=== PATIENT | female | born 1995 | race African-American/Black ===

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

== ENCOUNTER 2017-02-09 13:57 | Emergency (ER) | payer SELFPAY ==
[~2017-02-09] VITALS: Ht 165.1 cm; Wt 72.6 kg
[2017-02-09 14:10] VITALS: BP 138/74
--- NOTE | 2017-02-09 14:40 | PHYS DOC ---
Past Medical History Past Medical History: No Pertinent History Past Surgical History: No Surgical History Alcohol Use: None Drug Use: None Adult General Chief Complaint Chief Complaint: VAGINAL BLEEDING HPI HPI Patient is a 21 year old F who presents with vaginal bleeding. Patient is with unknown dates but took a printed test a month ago that was positive. Patient states approximately 3 weeks ago she had some vaginal bleeding that lasted for about a day and stopped. Patient states she woke up this morning had some vaginal spotting with no associated pain therefore came the emergency room for further evaluation. Patient denies any chest pain or shortness of breath. Patient denies any fevers. Patient denies any dysuria. Patient denies any abdominal pain or abdominal cramping at this time. Patient has no other complaints. Patient denies any recent intercourse. Review of Systems Review of Systems GEN: Denies fevers, chills, sweats HEENT: Denies blurred vision, sore throat CV: Denies chest pain RESP: Denies shortness of air, cough GI: Denies n/v/d : vag bleeding NEURO: Denies confusion, dizziness MSK: Denies weakness, joint pain/swelling Allergies Allergies Allergies Coded Allergies Type Severity Reaction Last Updated Verified No Known Drug Allergies 06/09/15 No Physical Exam Physical Exam GEN.: No apparent distress. Alert and oriented. HEENT: Head is normocephalic, atraumatic NECK: Supple. LUNGS: CTAB. HEART: RRR, S1, S2 present. Peripheral pulses intact ABDOMEN: Soft, nontender. Positive bowel sounds. EXTREMITIES: Without any cyanosis. NEUROLOGIC: Normal speech, normal tone PSYCHIATRIC: Normal affect, normal mood. SKIN: No ulcerations Current Patient Data Vital Signs Vital Signs Date Time Temp Pulse Resp B/P (MAP) Pulse Ox O2 Delivery O2 Flow Rate FiO2 02/09/17 14:10 97.9 89 16 138/74 (95) 99 Room Air 97.9 Lab Values Laboratory Tests Test 02/09/17 13:22 02/09/17 14:05 02/09/17 14:50 POC Urine HCG, Qualitative Hcg positive (Negative) Urine Color Yellow Urine Clarity Turbid Urine pH 7.0 Urine Specific [place] 1.025 Urine Protein Negative mg/dL (NEG-TRACE) Urine Glucose (UA) Negative mg/dL (NEG) Urine Ketones (Stick) Negative mg/dL (NEG) Urine Blood Moderate (NEG) Urine Nitrite Negative (NEG) Urine Bilirubin Negative (NEG) Urine Urobilinogen Dipstick 0.2 mg/dL (0.2 mg/dL) Urine Leukocyte Esterase Moderate (NEG) Urine RBC 3-5 /HPF (0-2) Urine WBC 5-10 /HPF (0-4) Urine Squamous Epithelial Cells Mod /LPF Urine Amorphous Sediment Present /HPF Urine Bacteria Few /HPF (0-FEW) White Blood Count 8.4 x10^3/uL (4.0-11.0) Red Blood Count 3.80 x10^6/uL (3.50-5.40) Hemoglobin 11.9 g/dL (12.0-15.5) L Hematocrit 35.4 % (36.0-47.0) L Mean Corpuscular Volume 93 fL (79-100) Mean Corpuscular Hemoglobin 31 pg (25-35) Mean Corpuscular Hemoglobin Concent 34 g/dL (31-37) Red Cell Distribution Width 12.8 % (11.5-14.5) Platelet Count 181 x10^3/uL (140-400) Neutrophils (%) (Auto) 70 % (31-73) Lymphocytes (%) (Auto) 22 % (24-48) L Monocytes (%) (Auto) 6 % (0-9) Eosinophils (%) (Auto) 2 % (0-3) Basophils (%) (Auto) 0 % (0-3) Neutrophils # (Auto) 5.9 x10^3uL (1.8-7.7) Lymphocytes # (Auto) 1.8 x10^3/uL (1.0-4.8) Monocytes # (Auto) 0.5 x10^3/uL (0.0-1.1) Eosinophils # (Auto) 0.2 x10^3/uL (0.0-0.7) Basophils # (Auto) 0.0 x10^3/uL (0.0-0.2) Maternal Serum HCG Beta Subunit 04215 mIU/mL (0-5) H Sodium Level 139 mmol/L (136-145) Potassium Level 3.7 mmol/L (3.5-5.1) Chloride Level 101 mmol/L (98-107) Carbon Dioxide Level 27 mmol/L (21-32) Anion Gap 11 (6-14) Blood Urea Nitrogen 7 mg/dL (7-20) Creatinine 0.7 mg/dL (0.6-1.0) Estimated GFR (Cockcroft-Gault) 130.4 BUN/Creatinine Ratio 10 (6-20) Glucose Level 75 mg/dL (70-99) Calcium Level 9.2 mg/dL (8.5-10.1) Total Bilirubin 0.2 mg/dL (0.2-1.0) Aspartate Amino Transferase (AST) 16 U/L (15-37) Alanine Aminotransferase (ALT) 18 U/L (14-59) Alkaline Phosphatase 76 U/L (46-116) Total Protein 7.6 g/dL (6.4-8.2) Albumin 3.4 g/dL (3.4-5.0) Albumin/Globulin Ratio 0.8 (1.0-1.7) L Laboratory Tests 02/09/17 14:50 Laboratory Tests 02/09/17 14:50 EKG EKG [] Radiology/Procedures Radiology/Procedures US: IMPRESSION: Single viable intrauterine fetus of approximately 12 weeks 3 days gestation. Subchorionic hemorrhage as outlined above.[] Course & Med Decision Making Course & Med Decision Making Pertinent Labs and Imaging studies reviewed. (See chart for details) ED course: Patient is seen and examined emergency room CBC, CMP, Rh, UA, ultrasound first trimester 1625: Patient was updated on ultrasound results and the subchorionic bleed was explained to her, recommended pelvic rest until follow-up with INSTRUMENT LENS GRINDER, recommended care. Explained to the patient that we'll be treating her for UTI. MDM: After reviewing the chart, CC/HPI/PMH, physical exam, [lab results], [ radiological results], I do not believe the patient has an obstetric emergency warranting further workup and/or admission at this time. Patient is stable to be discharged home. Patient has subchorionic bleed and recommended pelvic rest until she follows up with BOROUGH COORDINATOR. Will treat the patient for UTI. Additional verbal discharge instructions were provided to the patient and that if symptoms get worse or any new symptoms arise that are worrisome to the patient she is to return to the emergency room immediately [] Dragon Disclaimer Dragon Disclaimer This electronic medical record was generated, in whole or in part, using a voice recognition dictation system. Departure Departure Impression: Primary Impression: UTI (urinary tract infection) Additional Impressions: Subchorionic bleed Disposition: 01 HOME, SELF-CARE Condition: IMPROVED Referrals: NO PCP (PCP) Patient Instructions: Urinary Tract Infection, [id number] Additional Instructions: Please follow up with her INSTRUMENT LENS GRINDER the next one to 2 days, pelvic rest until follow-up, please return if symptoms get worse Scripts Nitrofurantoin Monohyd/M-Cryst (MACROBID 100 MG CAPSULE) 100 Mg Capsule 1 CAP PO BID, #[id number] CAP Prov: ROOPA BOO DO 02/09/17 Problem Qualifiers ROOPA BOO DO Feb 09, 2017 14:40
[2017-02-09 15:00] LABS: BASO % 0 % (0-3); EOS % 2 % (0-3); HEMATOCRIT 35.4 % (36.0-47.0); HEMOGLOBIN 11.9 g/dL (12.0-15.5); LYMPH # 1.8 x10^3/uL (1.0-4.8); LYMPH % 22 % (24-48); MEAN CORPUSCULAR HEMOGLOBIN 31 pg (25-35); MEAN CORPUSCULAR HGB CONC 34 g/dL (31-37); MEAN CORPUSCULAR VOLUME 93 fL (79-100); MONO % 6 % (0-9); NEUT % 70 % (31-73); PLATELET COUNT 181 x10^3/uL (140-400); RED CELL DISTRIBUTION WIDTH 12.8 % (11.5-14.5); WHITE BLOOD COUNT 8.4 x10^3/uL (4.0-11.0)
[2017-02-09 15:16] LABS: CALCIUM 9.2 mg/dL (8.5-10.1); CREATININE 0.7 mg/dL (0.6-1.0); GFR 130.4; POTASSIUM 3.7 mmol/L (3.5-5.1)
--- NOTE | 2017-02-09 15:16 | RAD ---
Indication with spotting. Early obstetrical ultrasound examination was performed. No prior pelvic imaging is available. There is a single, viable, IUP. [place]-rump length of 6 cm is compatible with a gestational age of approximately 12 weeks 3 days. By sonographic analysis the expected date of confinement is 08/21/2017. A heart rate of 160 was documented. There is a hypoechoic mass measuring approximately 6 cm compatible with an area of subchorionic hemorrhage. IMPRESSION: Single viable intrauterine fetus of approximately 12 weeks 3 days gestation. Subchorionic hemorrhage as outlined above.
[2017-02-09 15:19] LABS: ALBUMIN 3.4 g/dL (3.4-5.0); ALBUMIN/GLOBULIN RATIO 0.8 (1.0-1.7); TOTAL BILIRUBIN 0.2 mg/dL (0.2-1.0); TOTAL PROTEIN 7.6 g/dL (6.4-8.2)
[2017-02-09 15:25] LABS: BILIRUBIN,URINE NEGATIVE (NEG); GLUCOSE,URINE NEGATIVE (NEG); NITRITE,URINE NEGATIVE (NEG); PROTEIN,URINE NEGATIVE (NEG-TRACE); UROBILINOGEN,URINE 0.2 mg/dL (0.2 mg/dL)
[2017-02-09 15:45] LABS: BACTERIA,URINE FEW /HPF (0-FEW); SQUAMOUS EPITHELIAL CELL,UR MOD /LPF
[2017-02-09] MEDS ORDERED: NITR100C62 PO (17:12)
== END 2017-02-09 17:25 | disposition home or self-care (01) ==
LOC: ER 13:57
DX: O46.8X1 Other antepartum hemorrhage, first trimester (principal); O23.41 Unspecified infection of urinary tract in pregnancy, first trimester; Z3A.12 12 weeks gestation of pregnancy
CPT/HCPCS: 36415; 76801; 80053; 81001; 81025; 84702; 85025; 86900; 86901; 87086; 99285-25

== ENCOUNTER 2018-01-11 18:24 | Emergency (ER) | payer OTHER ==
[~2018-01-11] VITALS: Ht 157.5 cm; Wt 72.6 kg
[~2018-01-11 18:24] MED LIST changes: +NITR100C62 PO
[2018-01-11 19:00] VITALS: BP 132/77
[2018-01-11] MEDS ORDERED: DIPHTH,PERTUSS(ACELL),TET TOX 0.5 ML DISP.SYRIN. VAX IM ONE (19:15)
[2018-01-11] MEDS ORDERED: LIDOCAINE WITH 8.4% SOD BICARB 3 ML DISP.SYRIN. INJ ONE (19:15)
--- NOTE | 2018-01-11 19:16 | PHYS DOC ---
Past Medical History Past Medical History: No Pertinent History Past Surgical History: No Surgical History Alcohol Use: None Drug Use: None Adult General Chief Complaint Chief Complaint: LACERATION/AVULSION HPI HPI Patient is a 22 year old female with no significant medical history who presents with left hand laceration. 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 She is right-handed. Tetanus is not up-to-date. Review of Systems Review of Systems Constitutional: Denies fever or chills [] Musculoskeletal: Denies back pain or joint pain [] Integument: Left hand laceration Neurologic: Denies headache, focal weakness or sensory changes [] All other systems were reviewed and found to be within normal limits, except as documented in this note. Current Medications Current Medications Current Medications Medications (Trade) Dose Ordered Sig/Melissa Start Time Stop Time Status Last Admin Dose Admin Diphtheria/ Tetanus/Acell Pertussis (Boostrix) 0.5 ml ONCE ONCE 01/11/18 19:15 01/11/18 19:16 DC 01/11/18 19:18 0.5 ML Lidocaine/Sodium Bicarbonate (Buffered Lidocaine 1%) 3 ml 1X ONCE 01/11/18 19:15 01/11/18 19:16 DC 01/11/18 19:18 3 ML Allergies Allergies Allergies Coded Allergies Type Severity Reaction Last Updated Verified No Known Drug Allergies 06/09/15 No Physical Exam Physical Exam Constitutional: Well developed, well nourished, no acute distress, non-toxic appearance. [] Skin: Webspace between the thumb and the index finger with a laceration approximately 2 cm long. There is no obvious tendon involvement. Patient able to flex and extend the left thumb and left index finger with no difficulties. Adequate radial, medial and ulnar sensation to the left hand, +2 left radial pulse. Cap refill less than 2 seconds the left fingers. Back: No tenderness, no CVA tenderness. [] Extremities: No tenderness, no cyanosis, no clubbing, ROM intact, no edema. [] Neurologic: Alert and oriented X 3, normal motor function, normal sensory function, no focal deficits noted. [] Psychologic: Affect normal, judgement normal, mood normal. [] Current Patient Data Vital Signs Vital Signs Date Time Temp Pulse Resp B/P (MAP) Pulse Ox O2 Delivery O2 Flow Rate FiO2 01/11/18 19:00 98.5 68 16 132/77 (95) 98 Room Air 98.5 EKG EKG [] Radiology/Procedures Radiology/Procedures Laceration/Wound Repair Wound Location: Webspace between the left thumb and index finger Wound's Depth, Shape: Horizontal Wound Length (cm): Approximately 2 cm Wound Explored: clean Irrigated w/ Saline (ccs): 30 Betadine Prep?: Yes Anesthesia: 1% buffered lidocaine Volume Anesthetic (ccs): Approximately 3 mL Wound Repaired With: Ethilon Suture Size/Type: 5.0/interrupted sutures Number of Sutures: 7 Progress : Wound was covered with nonstick dressing Course & Med Decision Making Course & Med Decision Making Pertinent Labs and Imaging studies reviewed. (See chart for details) Patient has left hand laceration that was closed by me as noted in procedures. Tetanus was updated. Wound care instructions and return precautions provided. Dragon Disclaimer Dragon Disclaimer This electronic medical record was generated, in whole or in part, using a voice recognition dictation system. Departure Departure Impression: Primary Impression: Laceration of left hand Disposition: HOME, SELF-CARE Condition: STABLE Referrals: NO PCP (PCP) Follow-up with the emergency room in 7-10 days for suture removal. You can also see your own doctor for suture removal. Patient Instructions: Laceration Care, Adult Additional Instructions: You were evaluated in the emergency room for left hand laceration that was closed with stitches. You can shower. Keep the area clean and dry. Apply Neosporin to the area twice a day. You can leave the area open to air if it is not bleeding or draining. Monitor the area for any signs of infection including increased redness, yellow drainage from the area/odorous drainage from the area , warmth to the area and return to the emergency room or see your doctor if they occur. Follow-up with the emergency room in 7-10 days for suture removal. You can also see your own doctor for suture removal. Problem Qualifiers Primary Impression: Laceration of left hand Encounter type: initial encounter Foreign body presence: without foreign body Qualified Codes: S61.412A - Laceration without foreign body of left hand , initial encounter PAWAN CAMPBELL APRN Jan 11, 2018 19:16
== END 2018-01-11 19:54 | disposition home or self-care (01) ==
LOC: ER 18:24
DX: S61.412A Laceration without foreign body of left hand, initial encounter (principal); Y28.8XXA Contact with other sharp object, undetermined intent, initial encounter; Y93.89 Activity, other specified; Y99.8 Other external cause status; Y92.89 Other specified places as the place of occurrence of the external cause
CPT/HCPCS: 12001; 90471; 90715; 99283-25

== ENCOUNTER 2018-09-25 04:56 | Observation (INO) | payer OTHER ==
[~2018-09-25 04:56] MED LIST changes: +HYDR-3164 PO; -HYDR-971 PO
[2018-09-25] MEDS ORDERED: IV RINGERS,LACTATED 1000ML 1,000 ML IV SCH (05:00)
[2018-09-25 05:25] LABS: BILIRUBIN,URINE NEGATIVE (NEG); CLARITY,URINE CLEAR; COLOR,URINE YELLOW; NITRITE,URINE NEGATIVE (NEG); PH,URINE 7.5; PROTEIN,URINE NEGATIVE (NEG-TRACE); UROBILINOGEN,URINE 0.2 mg/dL (0.2 mg/dL)
[2018-09-25 05:32] LABS: BARBITURATES NEG (NEG); BENZODIAZEPINES NEG (NEG); CANNABINOIDS POS (NEG); COCAINE NEG (NEG); METHADONE NEG (NEG); OPIATES NEG (NEG); PHENCYCLIDINE NEG (NEG)
[2018-09-25 05:34] LABS: AMORPHOUS SEDIMENT,UR PRESENT /HPF; BACTERIA,URINE FEW /HPF (0-FEW); RBC,URINE 0 /HPF (0-2); SQUAMOUS EPITHELIAL CELL,UR FEW /LPF
[2018-09-25 05:36] LABS: AMPHETAMINE/METHAMPHETAMINE NEG (NEG)
== END 2018-09-25 06:35 | disposition home or self-care (01) ==
LOC: 3 SO LND 04:56
PROVIDERS: ADMIT Specialist; ATTEND Specialist
DX: O62.9 Abnormality of forces of labor, unspecified (principal); Z3A.36 36 weeks gestation of pregnancy
CPT/HCPCS: 80307; 81001; 87086; G0378; G0379

== ENCOUNTER 2018-10-16 05:25 | Inpatient (IN) | payer OTHER ==
[~2018-10-16] VITALS: Ht 165.1 cm; Wt 90.3 kg
[2018-10-16] MEDS ORDERED: IV RINGERS,LACTATED 1000ML 1,000 ML IV SCH (06:00)
[2018-10-16] MEDS ORDERED: CITRIC ACID/SODIUM CITRATE 30 ML SOLUTION. PO ONE (06:00)
[2018-10-16 06:09] VITALS: BP 132/81
[2018-10-16 06:25] LABS: HEMATOCRIT 28.6 % (36.0-47.0); HEMOGLOBIN 9.3 g/dL (12.0-15.5); RED BLOOD COUNT 3.35 x10^6/uL (3.50-5.40); RED CELL DISTRIBUTION WIDTH 13.9 % (11.5-14.5); WHITE BLOOD COUNT 8.4 x10^3/uL (4.0-11.0)
[2018-10-16 06:33] LABS: BILIRUBIN,URINE NEGATIVE (NEG); CLARITY,URINE CLEAR; COLOR,URINE YELLOW; NITRITE,URINE NEGATIVE (NEG); PROTEIN,URINE NEGATIVE (NEG-TRACE)
[2018-10-16 06:48] LABS: BACTERIA,URINE MODERATE /HPF (0-FEW); RBC,URINE 0 /HPF (0-2); SQUAMOUS EPITHELIAL CELL,UR MOD /LPF
[2018-10-16 06:51] LABS: BARBITURATES NEG (NEG); BENZODIAZEPINES NEG (NEG); CANNABINOIDS POS (NEG); COCAINE NEG (NEG); METHADONE NEG (NEG); OPIATES NEG (NEG); PHENCYCLIDINE NEG (NEG)
[2018-10-16 06:55] LABS: AMPHETAMINE/METHAMPHETAMINE NEG (NEG)
[2018-10-16] MEDS: IV RINGERS,LACTATED 1000ML 1,000 ML IV SCH ×3 (07:09→19:19)
[2018-10-16] MEDS ORDERED: MORPHINE PF 5 MG/10 ML VIAL. ONE (07:21)
[2018-10-16] MEDS ORDERED: fentaNYL PF VIAL 100 MCG/2 ML VIAL ONE (07:22)
[2018-10-16] MEDS ORDERED: METOCLOPRAMIDE HCL 10 MG/2 ML VIAL. ONE (07:23)
[2018-10-16] MEDS ORDERED: ONDANSETRON PF 4 MG/2 ML VIAL. ONE (07:23)
[2018-10-16] MEDS ORDERED: FAMOTIDINE 20 MG/2 ML VIAL ONE (07:23)
--- NOTE | 2018-10-16 07:30 | PDOC1 ---
OB - History Hx of Present Care: Good Care Ultrasounds: Normal mid trimester US Obstetrical Complications: None Medical Complications: None Past Family/Social History * Past Medical, Surgical, Family and Obstetric Histories reviewed from chart. Blood Type: B+ Rubella: Immune RPR/VDRL: Negative GBS Status: Unknown HBsAG: Negative OB - Chief Complaint & HPI Date of Admission: Date of Admission: October 16, 2018 at 05:25 Chief Complaint/History : 3 Para: 1 EDC: October 16, 2018 Reason for admission: section Indication for : desires repeat Admission Nurse Assessment Rev: Yes OB - Admission Exam Physical Exam Vitals: VS - Last 72 Hours, by Label Date Time Temp Pulse Resp B/P (MAP) Pulse Ox O2 Delivery O2 Flow Rate FiO2 10/16/18 06:09 98.4 83 18 132/81 (98) 98 Room Air 98.4 HEENT: Normal, Nasal Mucosa Normal, Oropharynx Normal, Moist Membranes, Fontanelles Normal Heart: Regular Rate Lungs: Clear, Equal Abdomen: Gravid Extremities: Normal Pulses, No tenderness or swelling Cervical Dilatation: None Effacement: 50% Station: -3 Membranes: Intact Amniotic Fluid: Clear Heart Rate: Normal Accelerations: Accelerations Present Contractions on Admission: None Assessment/Plan Assessment/Plan TIUP RLTC/S CRISTIAN SLATER MD October 16, 2018 07:30
[2018-10-16] MEDS ORDERED: PHENYLEPHRINE in 0.9% NACL PF 1 MG/10 ML SYRINGE. IV ONE (08:51)
[2018-10-16] MEDS ORDERED: ePHEDrine PF IN SALINE 50 MG/10 ML SYRINGE. IV ONE (08:51)
[2018-10-16] MEDS ORDERED: MAG HYDROX/ALUMINUM HYD/SIMETH 30 ML ORAL.SUSP PO PRN (09:45)
[2018-10-16] MEDS ORDERED: oxyCODONE/APAP 5/325 1 TAB TABLET PO PRN (09:45)
[2018-10-16] MEDS ORDERED: 0.9 % SODIUM CHLORIDE 10 ML DISP.SYRIN. IV PRN (09:45)
[2018-10-16] MEDS ORDERED: OXYTOCIN 30 UNIT/500 ML PREMIX 500 ML IV PRN (09:45)
[2018-10-16] MEDS ORDERED: ONDANSETRON PF 4 MG/2 ML VIAL. IV PRN (09:45)
[2018-10-16] MEDS ORDERED: SIMETHICONE 80 MG TAB.CHEW PO PRN (09:45)
[2018-10-16] MEDS ORDERED: MMR per PROTOCOL. MC PRN (09:45)
[2018-10-16] MEDS ORDERED: ZOLPIDEM 5 MG TABLET. PO PRN (09:45)
[2018-10-16] MEDS ORDERED: MAGNESIUM HYDROXIDE 2,400 MG/30 ML ORAL.SUSP. PO PRN (09:45)
[2018-10-16] MEDS ORDERED: diphenhydrAMINE ORAL ELIXIR 12.5 MG/5 ML ML PO PRN (09:45)
[2018-10-16] MEDS: KETOROLAC 30 MG/ML VIAL. IV PRN ×2 (09:46→22:39)
[2018-10-16 11:30] VITALS: BP 126/67
[2018-10-16 12:00] VITALS: BP 121/68
[2018-10-16 13:00] VITALS: BP 128/72
[2018-10-16] MEDS ORDERED: ceFAZolin SODIUM 1 GM in IV DEXTROSE 5% 50 ML IV SCH (14:00)
[2018-10-16] MEDS: ceFAZolin SODIUM IV Push 1 GM VIAL. IVP SCH ×2 (16:32→22:41)
--- NOTE | 2018-10-16 16:47 | NUR ---
SS following up with referral regarding "mom positive for marijuana during ." SS met with mother to assess circumstances surrounding the referral. Mother notified that she was positive for THC. Mother denied use for quite some time but did admit to use of THC. Mother denied any other substance and also denied any behavioral health or domestic issues in the home. Mother reported that she lives at home with infants father and one other child. 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 Mother reported having good family support and all needed infant supplies in the home for infant to include diapers, wipes, car seat, crib, and clothing. Mother reported that she plans to bottle feed infant. Mother requested information on WIC. SS provided mother with requested information. Mother reported having active Medicaid. Mother reported that she would like infant seen at [facility] and reported that she has good transportation to and from appointments. RN notified. As observed, mother was bonding well with infant during visit. DCF hotline report made for positive THC, intake #[id number]. RN notified.
[2018-10-16 18:47] VITALS: BP 123/72
[2018-10-16 22:29] VITALS: BP 124/75
[2018-10-17 02:11] VITALS: BP 116/73
[2018-10-17 04:21] LABS: BASO % 0 % (0-3); EOS % 1 % (0-3); HEMATOCRIT 25.6 % (36.0-47.0); HEMOGLOBIN 8.2 g/dL (12.0-15.5); LYMPH # 1.2 x10^3/uL (1.0-4.8); LYMPH % 15 % (24-48); MEAN CORPUSCULAR HEMOGLOBIN 27 pg (25-35); MEAN CORPUSCULAR HGB CONC 32 g/dL (31-37); MEAN CORPUSCULAR VOLUME 85 fL (79-100); MONO # 0.7 x10^3/uL (0.0-1.1); MONO % 9 % (0-9); NEUT # 6.3 x10^3uL (1.8-7.7); NEUT % 76 % (31-73); PLATELET COUNT 129 x10^3/uL (140-400); RED BLOOD COUNT 3.03 x10^6/uL (3.50-5.40); RED CELL DISTRIBUTION WIDTH 13.7 % (11.5-14.5); WHITE BLOOD COUNT 8.3 x10^3/uL (4.0-11.0)
[2018-10-17] MEDS: KETOROLAC 30 MG/ML VIAL. IV PRN (05:56)
[2018-10-17] MEDS: ceFAZolin SODIUM IV Push 1 GM VIAL. IVP SCH (05:57)
[2018-10-17] MEDS: oxyCODONE/APAP 5/325 1 TAB TABLET PO PRN ×4 (05:57→17:42)
[2018-10-17 06:25] VITALS: BP 114/82
[2018-10-17 10:00] VITALS: BP 115/70
[2018-10-17] MEDS: FERROUS SULFATE 325 MG TABLET. PO SCH ×2 (10:03→17:41)
--- NOTE | 2018-10-17 12:51 | PDOC ---
OB Progress Note Date of Service 10/17/18 Time of Evaluation 1250 Notes Pt. feeling well. Pain controlled. Pt. ambulating and bottle feeding. Lab Laboratory Tests Test 10/16/18 05:40 10/16/18 06:00 10/17/18 04:05 Urine Collection Type Unknown Urine Color Yellow Urine Clarity Clear Urine pH 8.0 Urine Specific [place] 1.015 Urine Protein Negative mg/dL (NEG-TRACE) Urine Glucose (UA) Negative mg/dL (NEG) Urine Ketones (Stick) Negative mg/dL (NEG) Urine Blood Negative (NEG) Urine Nitrite Negative (NEG) Urine Bilirubin Negative (NEG) Urine Urobilinogen Dipstick 1.0 mg/dL (0.2 mg/dL) Urine Leukocyte Esterase Small (NEG) Urine RBC 0 /HPF (0-2) Urine WBC 5-10 /HPF (0-4) Urine Squamous Epithelial Cells Mod /LPF Urine Bacteria Moderate /HPF (0-FEW) Urine Mucus Slight /LPF Urine Opiates Screen Neg (NEG) Urine Methadone Screen Neg (NEG) Urine Barbiturates Neg (NEG) Urine Phencyclidine Screen Neg (NEG) Urine Amphetamine/Methamphetamine Neg (NEG) Urine Benzodiazepines Screen Neg (NEG) Urine Cocaine Screen Neg (NEG) Urine Cannabinoids Screen Pos (NEG) Urine Ethyl Alcohol Neg (NEG) White Blood Count 8.4 x10^3/uL (4.0-11.0) 8.3 x10^3/uL (4.0-11.0) Red Blood Count 3.35 x10^6/uL (3.50-5.40) 3.03 x10^6/uL (3.50-5.40) Hemoglobin 9.3 g/dL (12.0-15.5) 8.2 g/dL (12.0-15.5) Hematocrit 28.6 % (36.0-47.0) 25.6 % (36.0-47.0) Mean Corpuscular Volume 85 fL (79-100) 85 fL (79-100) Mean Corpuscular Hemoglobin 28 pg (25-35) 27 pg (25-35) Mean Corpuscular Hemoglobin Concent 32 g/dL (31-37) 32 g/dL (31-37) Red Cell Distribution Width 13.9 % (11.5-14.5) 13.7 % (11.5-14.5) Platelet Count 155 x10^3/uL (140-400) 129 x10^3/uL (140-400) Treponema pallidum Antibody Nonreactive (Nonreactive) Neutrophils (%) (Auto) 76 % (31-73) Lymphocytes (%) (Auto) 15 % (24-48) Monocytes (%) (Auto) 9 % (0-9) Eosinophils (%) (Auto) 1 % (0-3) Basophils (%) (Auto) 0 % (0-3) Neutrophils # (Auto) 6.3 x10^3uL (1.8-7.7) Lymphocytes # (Auto) 1.2 x10^3/uL (1.0-4.8) Monocytes # (Auto) 0.7 x10^3/uL (0.0-1.1) Eosinophils # (Auto) 0.0 x10^3/uL (0.0-0.7) Basophils # (Auto) 0.0 x10^3/uL (0.0-0.2) Laboratory Tests Test 10/17/18 04:05 White Blood Count 8.3 x10^3/uL (4.0-11.0) Red Blood Count 3.03 x10^6/uL (3.50-5.40) Hemoglobin 8.2 g/dL (12.0-15.5) Hematocrit 25.6 % (36.0-47.0) Mean Corpuscular Volume 85 fL (79-100) Mean Corpuscular Hemoglobin 27 pg (25-35) Mean Corpuscular Hemoglobin Concent 32 g/dL (31-37) Red Cell Distribution Width 13.7 % (11.5-14.5) Platelet Count 129 x10^3/uL (140-400) Neutrophils (%) (Auto) 76 % (31-73) Lymphocytes (%) (Auto) 15 % (24-48) Monocytes (%) (Auto) 9 % (0-9) Eosinophils (%) (Auto) 1 % (0-3) Basophils (%) (Auto) 0 % (0-3) Neutrophils # (Auto) 6.3 x10^3uL (1.8-7.7) Lymphocytes # (Auto) 1.2 x10^3/uL (1.0-4.8) Monocytes # (Auto) 0.7 x10^3/uL (0.0-1.1) Eosinophils # (Auto) 0.0 x10^3/uL (0.0-0.7) Basophils # (Auto) 0.0 x10^3/uL (0.0-0.2) Medications Current Medications Ringer's Solution 1,000 ml @ 1,000 mls/hr Q1H IV Last administered on 10/16/18at 06:25; Start 10/16/18 at 06:00; Stop 10/16/18 at 06:59; Status DC Ringer's Solution 1,000 ml @ 125 mls/hr Q8H IV Last administered on 10/16/18at 19:19; Start 10/16/18 at 07:00 Cefazolin Sodium/ Dextrose 50 ml @ 100 mls/hr 1X ONCE IV Last administered on 10/16/18at 07:10; Start 10/16/18 at 06:00; Stop 10/16/18 at 06:29; Status DC Citric Acid/ Sodium Citrate (Bicitra) 30 ml 1X ONCE PO Last administered on at 07:09; Start 10/16/18 at 06:00; Stop 10/16/18 at 06:01; Status DC Morphine Sulfate (Morphine Preservative Free) 5 mg STK-MED ONCE .ROUTE ; Start 10/16/18 at 07:21; Stop 10/16/18 at 07:22; Status DC Fentanyl Citrate (Fentanyl 2ml Vial) 100 mcg STK-MED ONCE .ROUTE ; Start 10/16/18 at 07:22; Stop 10/16/18 at 07:23; Status DC Famotidine (Pepcid Vial) 20 mg STK-MED ONCE .ROUTE ; Start 10/16/18 at 07:23; Stop 10/16/18 at 07:24; Status DC Metoclopramide HCl (Reglan Vial) 10 mg STK-MED ONCE .ROUTE ; Start 10/16/18 at 07:23; Stop 10/16/18 at 07:24; Status DC Ondansetron HCl (Zofran) 4 mg STK-MED ONCE .ROUTE ; Start 10/16/18 at 07:23; Stop 10/16/18 at 07:24; Status DC Phenylephrine HCl (PHENYLEPHRINE in 0.9% NACL PF) 1 mg STK-MED ONCE IV ; Start 10/16/18 at 08:51; Stop 10/16/18 at 08:52; Status DC Ephedrine Sulfate (ePHEDrine PF IN SALINE SYRINGE) 50 mg STK-MED ONCE IV ; Start 10/16/18 at 08:51; Stop 10/16/18 at 08:52; Status DC Sodium Chloride (Normal Saline Flush) 3 ml QSHIFT PRN IV AFTER MEDS AND BLOOD DRAWS; Start 10/16/18 at 09:45 Oxytocin/Sodium Chloride 500 ml @ 125 mls/hr CONT PRN IV EXCESSIVE POST- BLEEDING; Start 10/16/18 at 09:45; Stop 10/16/18 at 17:44; Status DC Ibuprofen (Motrin) 800 mg Q8HRS PO ; Start 10/16/18 at 14:00 Ondansetron HCl (Zofran) 4 mg PRN Q6HRS PRN IV NAUSEA/VOMITING; Start 10/16/18 at 09:45 Docusate Sodium (Colace) 100 mg PRN BID PRN PO HARD STOOLS; Start 10/16/18 at 09:45 Magnesium Hydroxide (Milk Of Magnesia) 2,400 mg PRN DAILY PRN PO CONSTIPATION; Start 10/16/18 at 09:45 Al Hydroxide/Mg Hydroxide (Mylanta Plus Xs) 30 ml PRN Q4HRS PRN PO HEARTBURN / GAS; Start 10/16/18 at 09:45 Simethicone (Gas-X) 80 mg PRN AFTMEALHC PRN PO GAS / BLOATING; Start 10/16/18 at 09:45 Diphenhydramine HCl (Benadryl Oral Elixir) 12.5 mg PRN Q6HRS PRN PO ITCHING; Start 10/16/18 at 09:45 Ferrous Sulfate (Feosol) 325 mg BIDWMEALS PO Last administered on 10/17/18at 10:03; Start 10/16/18 at 17:00 Zolpidem Tartrate (Ambien) 5 mg PRN QHS PRN PO INSOMNIA, MAY REPEAT X1; Start 10/16/18 at 09:45 Info (Do NOT chart on this placeholder) 1 ea PRN 1X PRN MC SEE COMMENTS; Start 10/16/18 at 09:45 Info (Do NOT chart on this placeholder) 1 ea PRN 1X PRN MC SEE COMMENTS; Start 10/16/18 at 09:45 Oxycodone/ Acetaminophen (Percocet 5/325) 1 tab PRN Q4HRS PRN PO MILD PAIN Last administered on 10/17/18at 10:04; Start 10/16/18 at 09:45 Oxycodone/ Acetaminophen (Percocet 5/325) 2 tab PRN Q4HRS PRN PO MODERATE PAIN, SEVERE PAIN; Start 10/16/18 at 09:45 Cefazolin Sodium 1 gm/Dextrose 50 ml @ 100 mls/hr Q8HRS IV ; Start 10/16/18 at 14:00; Status UNV Ketorolac Tromethamine (Toradol 30mg Vial) 30 mg PRN Q6HRS PRN IV PAIN Last administered on 10/17/18at 05:56; Start 10/16/18 at 09:45; Stop 10/21/18 at 09:44 Cefazolin Sodium (Ancef) 1 gm Q8H IVP Last administered on 10/17/18at 05:57; Start 10/16/18 at 15:00; Stop 10/17/18 at 07:01; Status DC Active Scripts Active Exam Abd: soft, non tender, fundus firm Incision site: clean, dry and intact Assessment POD#1 s/p rpt c/s Plan of Care: Continue current Tx, Mgmt SARITA GRAJEDA Jr, MD October 17, 2018 12:51
[2018-10-17] MEDS: IBUPROFEN 400 MG TABLET. PO SCH (15:32)
[2018-10-17 16:55] VITALS: BP 120/69
[2018-10-17] MEDS: DOCUSATE SODIUM 100 MG CAPSULE. PO PRN (17:42)
[2018-10-17 21:20] VITALS: BP 139/91
[2018-10-18] MEDS: oxyCODONE/APAP 5/325 1 TAB TABLET PO PRN ×5 (02:29→23:11)
[2018-10-18] MEDS: IBUPROFEN 400 MG TABLET. PO SCH ×3 (02:30→21:50)
[2018-10-18] MEDS: DOCUSATE SODIUM 100 MG CAPSULE. PO PRN ×2 (06:14→21:49)
[2018-10-18 06:25] VITALS: BP 121/71
--- NOTE | 2018-10-18 10:47 | PDOC ---
BRIEF OPERATIVE NOTE Date: October 16, 2018 Pre-Op Diagnosis TIUP desires R/LTC/S Post-Op Diagnosis Same Procedure Performed RLTC/S Surgeon Parag Anesthesia Type: Regional Blood Loss 700cc Specimens Obtained None Findings Female 11/08 Complications None CRISTIAN SLATER MD October 18, 2018 10:47
[2018-10-18 11:20] VITALS: BP 124/74
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
[2018-10-18] MEDS: FERROUS SULFATE 325 MG TABLET. PO SCH (12:11)
--- NOTE | 2018-10-18 12:41 | PDOC ---
OB Progress Note Date of Service 10/18/18 Time of Evaluation 1240 Notes Pt. feeling well. No complaints. Lab Laboratory Tests Test 10/17/18 04:05 White Blood Count 8.3 x10^3/uL (4.0-11.0) Red Blood Count 3.03 x10^6/uL (3.50-5.40) Hemoglobin 8.2 g/dL (12.0-15.5) Hematocrit 25.6 % (36.0-47.0) Mean Corpuscular Volume 85 fL (79-100) Mean Corpuscular Hemoglobin 27 pg (25-35) Mean Corpuscular Hemoglobin Concent 32 g/dL (31-37) Red Cell Distribution Width 13.7 % (11.5-14.5) Platelet Count 129 x10^3/uL (140-400) Neutrophils (%) (Auto) 76 % (31-73) Lymphocytes (%) (Auto) 15 % (24-48) Monocytes (%) (Auto) 9 % (0-9) Eosinophils (%) (Auto) 1 % (0-3) Basophils (%) (Auto) 0 % (0-3) Neutrophils # (Auto) 6.3 x10^3uL (1.8-7.7) Lymphocytes # (Auto) 1.2 x10^3/uL (1.0-4.8) Monocytes # (Auto) 0.7 x10^3/uL (0.0-1.1) Eosinophils # (Auto) 0.0 x10^3/uL (0.0-0.7) Basophils # (Auto) 0.0 x10^3/uL (0.0-0.2) Medications Current Medications Ringer's Solution 1,000 ml @ 1,000 mls/hr Q1H IV Last administered on 10/16/18at 06:25; Start 10/16/18 at 06:00; Stop 10/16/18 at 06:59; Status DC Ringer's Solution 1,000 ml @ 125 mls/hr Q8H IV Last administered on 10/16/18at 19:19; Start 10/16/18 at 07:00 Cefazolin Sodium/ Dextrose 50 ml @ 100 mls/hr 1X ONCE IV Last administered on 10/16/18at 07:10; Start 10/16/18 at 06:00; Stop 10/16/18 at 06:29; Status DC Citric Acid/ Sodium Citrate (Bicitra) 30 ml 1X ONCE PO Last administered on 10/16/18at 07:09; Start 10/16/18 at 06:00; Stop 10/16/18 at 06:01; Status DC Morphine Sulfate (Morphine Preservative Free) 5 mg STK-MED ONCE .ROUTE ; Start 10/16/18 at 07:21; Stop 10/16/18 at 07:22; Status DC Fentanyl Citrate (Fentanyl 2ml Vial) 100 mcg STK-MED ONCE .ROUTE ; Start 10/16/18 at 07:22; Stop 10/16/18 at 07:23; Status DC Famotidine (Pepcid Vial) 20 mg STK-MED ONCE .ROUTE ; Start 10/16/18 at 07:23; Stop 10/16/18 at 07:24; Status DC Metoclopramide HCl (Reglan Vial) 10 mg STK-MED ONCE .ROUTE ; Start 10/16/18 at 07:23; Stop 10/16/18 at 07:24; Status DC Ondansetron HCl (Zofran) 4 mg STK-MED ONCE .ROUTE ; Start 10/16/18 at 07:23; Stop 10/16/18 at 07:24; Status DC Phenylephrine HCl (PHENYLEPHRINE in 0.9% NACL PF) 1 mg STK-MED ONCE IV ; Start 10/16/18 at 08:51; Stop 10/16/18 at 08:52; Status DC Ephedrine Sulfate (ePHEDrine PF IN SALINE SYRINGE) 50 mg STK-MED ONCE IV ; Start 10/16/18 at 08:51; Stop 10/16/18 at 08:52; Status DC Sodium Chloride (Normal Saline Flush) 3 ml QSHIFT PRN IV AFTER MEDS AND BLOOD DRAWS; Start 10/16/18 at 09:45 Oxytocin/Sodium Chloride 500 ml @ 125 mls/hr CONT PRN IV EXCESSIVE POST- BLEEDING; Start 10/16/18 at 09:45; Stop 10/16/18 at 17:44; Status DC Ibuprofen (Motrin) 800 mg Q8HRS PO Last administered on 10/18/18at 12:11; Start 10/16/18 at 14:00 Ondansetron HCl (Zofran) 4 mg PRN Q6HRS PRN IV NAUSEA/VOMITING; Start 10/16/18 at 09:45 Docusate Sodium (Colace) 100 mg PRN BID PRN PO HARD STOOLS Last administered on 10/18/18at 06:14; Start 10/16/18 at 09:45 Magnesium Hydroxide (Milk Of Magnesia) 2,400 mg PRN DAILY PRN PO CONSTIPATION; Start 10/16/18 at 09:45 Al Hydroxide/Mg Hydroxide (Mylanta Plus Xs) 30 ml PRN Q4HRS PRN PO HEARTBURN / GAS; Start 10/16/18 at 09:45 Simethicone (Gas-X) 80 mg PRN AFTMEALHC PRN PO GAS / BLOATING; Start 10/16/18 at 09:45 Diphenhydramine HCl (Benadryl Oral Elixir) 12.5 mg PRN Q6HRS PRN PO ITCHING; Start 10/16/18 at 09:45 Ferrous Sulfate (Feosol) 325 mg BIDWMEALS PO Last administered on 10/18/18at 12:11; Start 10/16/18 at 17:00 Zolpidem Tartrate (Ambien) 5 mg PRN QHS PRN PO INSOMNIA, MAY REPEAT X1; Start 10/16/18 at 09:45 Info (Do NOT chart on this placeholder) 1 ea PRN 1X PRN MC SEE COMMENTS; Start 10/16/18 at 09:45 Info (Do NOT chart on this placeholder) 1 ea PRN 1X PRN MC SEE COMMENTS; Start 10/16/18 at 09:45 Oxycodone/ Acetaminophen (Percocet 5/325) 1 tab PRN Q4HRS PRN PO MILD PAIN 1-3 Last administered on 10/18/18at 12:12; Start 10/16/18 at 09:45 Oxycodone/ Acetaminophen (Percocet 5/325) 2 tab PRN Q4HRS PRN PO MODERATE PAIN, SEVERE PAIN; Start 10/16/18 at 09:45 Cefazolin Sodium 1 gm/Dextrose 50 ml @ 100 mls/hr Q8HRS IV ; Start 10/16/18 at 14:00; Status UNV Ketorolac Tromethamine (Toradol 30mg Vial) 30 mg PRN Q6HRS PRN IV PAIN Last administered on 10/17/18at 05:56; Start 10/16/18 at 09:45; Stop 10/21/18 at 09:44 Cefazolin Sodium (Ancef) 1 gm Q8H IVP Last administered on 10/17/18at 05:57; Start 10/16/18 at 15:00; Stop 10/17/18 at 07:01; Status DC Active Scripts Active Exam Abd: soft, mild tenderness, fundus firm Incision site: clean, dry and intact Assessment POD#2 s/p rpt c/s Plan of Care: Continue current Tx, Mgmt SARITA GRAJEDA Jr, MD October 18, 2018 12:41
[2018-10-18] MEDS ORDERED: BISACODYL 10 MG SUPP.RECT. PR PRN (13:15)
[2018-10-18 17:36] VITALS: BP 128/74
[2018-10-18 23:01] VITALS: BP 116/57
[2018-10-19] MEDS: oxyCODONE/APAP 5/325 1 TAB TABLET PO PRN ×2 (06:00→16:45)
[2018-10-19] MEDS: IBUPROFEN 400 MG TABLET. PO SCH ×2 (06:00→16:45)
[2018-10-19] MEDS: DOCUSATE SODIUM 100 MG CAPSULE. PO PRN ×3 (06:00→16:44)
[2018-10-19 06:22] VITALS: BP 123/85
[2018-10-19] MEDS: FERROUS SULFATE 325 MG TABLET. PO SCH ×2 (08:59→16:44)
[2018-10-19 11:20] VITALS: BP 122/87
--- NOTE | 2018-10-19 13:06 | PDOC3 ---
OB DISCHARGE SUMMARY DATE OF ADMISSION: 10/16/18 DATE OF DISCHARGE: 10/19/18 REASON FOR ADMISSION: section PROCEDURES: None INTRAPARTUM PROCEDURES: : Low Cerv Trans PROCEDURES: None OPERATIONS: None DISCHARGE DIAGNOSIS: Term Delivered DISCHARGE INFORMATION: Activity, Diet HOSPITAL COURSE Unremarkable CONDITION AT DISCHARGE Stable CRISTIAN SLATER MD October 19, 2018 13:05
[2018-10-19] MEDS ORDERED: OXYC1TAB15 PO (13:08)
[2018-10-19] MEDS ORDERED: NAPR-514 PO (13:08)
[2018-10-19 16:00] VITALS: BP 119/86
--- NOTE | 2018-11-01 10:59 | OP ---
DATE OF SURGERY: 10/18/2018 PREOPERATIVE DIAGNOSIS: Term intrauterine , desires repeat section. POSTOPERATIVE DIAGNOSIS: Term intrauterine , desires repeat section. PROCEDURE: Repeat low transverse . SURGEON: Fady Tuttle M.D. ANESTHESIA: Regional. ESTIMATED BLOOD LOSS: 700 mL. FINDINGS: Normal uterus, tubes, and ovaries. Female , Apgars 8, 9 and 9; weight 6 pounds 6 ounces. COMPLICATIONS: None. CONDITION: Stable. DESCRIPTION OF PROCEDURE: After risks, benefits, indications, alternatives discussed in detail with the patient. The patient brought to the OR theater, placed in supine position with left lateral uterine displacement. After adequate regional anesthesia, the patient was prepped and draped in the usual sterile manner. Previous Pfannenstiel incision was taken out in toto with Bovie cautery. Subcutaneous tissues taken down with Bovie cautery. Rectus fascia was nicked in midline with Bovie cautery, extended laterally in each direction with Bovie cautery. Rectus muscle was split bluntly. Parietal peritoneum was entered bluntly with gentle stretch of the rectus muscle; room was made for delivery of the . A low transverse Pfannenstiel incision was made sharply with scalpel and extended laterally and upwardly with gloved hand. Membranes were entered while doing this. Gloved hand was placed within the lower uterine segment to elevate head with fundal pressure, the was delivered on anterior abdominal wall. cried spontaneously and moved all extremities. Cord was doubly clamped, transected cord between two clamps. Infant was handed to nursing care in attendance. Cord blood samples were taken. Placenta was delivered spontaneously intact, 3-vessel cord. Uterus was wiped free of any adherent membranes. The low transverse hysterotomy incision was reapproximated with 0 Monocryl in a running locking manner, imbricated with 0 Monocryl in vertical mattress stitch fashion. The bladder flap was reapproximated with 3-0 Vicryl in a running manner, some areas of denudation was taken care of with Saul. Previous two sponges that were placed in the gutters were removed. The Pedro retractor was also placed during this procedure. The Pedro retractor was removed. Parietal peritoneum was reapproximated with 3-0 Vicryl in a running manner. This stitch also reapproximated the rectus muscle in the midline. Any areas of bleeding in the rectus muscle were controlled with Bovie cautery. Rectus fascia was reapproximated with Stratafix 0 Prolene. Subcutaneous tissue was irrigated copiously with warm normal saline. Elsi fascia was reapproximated with 2-0 plain. Skin was reapproximated with Insorb shanell. Sponge, needle, and instrument counts correct x 2 per nursing staff. FADY TUTTLE MD DR: MARC/diane JOB#: [id number] / [id number]
== END 2018-10-19 17:30 | disposition home or self-care (01) | DRG 787 ==
LOC: 3 SO LND 05:25 → 3 NORTH 11:23
PROVIDERS: ADMIT Specialist; ATTEND Specialist
PROC: 10D00Z1 Extraction of Products of Conception, Low, Open Approach (ICD-10-PCS; principal; 2018-10-17)
DX: O34.211 Maternal care for low transverse scar from previous cesarean delivery (principal); R71.0 Precipitous drop in hematocrit; Z37.0 Single live birth; Z3A.00 Weeks of gestation of pregnancy not specified
CPT/HCPCS: 36415; 80307; 81001; 85025; 85027; 86592; 86850; 86900; 86901; 87086; J0171; J0690; J0696; J1885; J2270; J2370; J2405; J2765; J3010; J3490; J7120

== ENCOUNTER 2019-03-06 10:38 | Emergency (ER) | payer MEDICAID, OTHER ==
[~2019-03-06] VITALS: Ht 165.1 cm; Wt 77.1 kg
[~2019-03-06 10:38] MED LIST changes: +NAPR-514 PO; +OXYC1TAB15 PO
[2019-03-06 10:55] VITALS: BP 125/64
[2019-03-06 11:36] LABS: BILIRUBIN,URINE NEGATIVE (NEG); CLARITY,URINE CLEAR; COLOR,URINE YELLOW; NITRITE,URINE NEGATIVE (NEG); PROTEIN,URINE NEGATIVE (NEG-TRACE)
[2019-03-06 11:44] LABS: SQUAMOUS EPITHELIAL CELL,UR MOD /LPF
[2019-03-06 11:45] LABS: BACTERIA,URINE MODERATE /HPF (0-FEW); RBC,URINE OCC /HPF (0-2)
[2019-03-06] MEDS ORDERED: SULF1TAB24 PO (11:51)
--- NOTE | 2019-03-06 13:36 | PHYS DOC ---
Past Medical History Past Medical History: No Pertinent History, Other Past Surgical History: Alcohol Use: None Drug Use: None Adult General Chief Complaint Chief Complaint: TEST [facility] HPI Patient is a 23 year old REQUEST TEST] ONE DAY PERIOD TEN DAYS AGO FEELS INTERMITTENTLY NAUSEOUS NO PAIN Review of Systems Review of Systems Constitutional: Denies fever or chills [] Eyes: Denies change in visual acuity, redness, or eye pain [] HENT: Denies nasal congestion or sore throat [] Respiratory: Denies cough or shortness of breath [] Cardiovascular: No additional information not addressed in HPI [] GI: Denies abdominal pain, nausea, vomiting, bloody stools or diarrhea [] : Denies dysuria or hematuria [] All other systems were reviewed and found to be within normal limits, except as documented in this note. Allergies Allergies Allergies Coded Allergies Type Severity Reaction Last Updated Verified No Known Drug Allergies 06/09/15 No Physical Exam Physical Exam Constitutional: Well developed, well nourished, no acute distress, non-toxic appearance. [] HENT: Normocephalic, atraumatic, bilateral external ears normal, oropharynx moist, no oral exudates, nose normal. [] Eyes: PERRLA, EOMI, conjunctiva normal, no discharge. [] Neck: Normal range of motion, no tenderness, supple, no stridor. [] Abdomen: Bowel sounds normal, soft, no tenderness, no masses, no pulsatile masses. [] Skin: Warm, dry, no erythema, no rash. [] Extremities: No tenderness, no cyanosis, no clubbing, ROM intact, no edema. [] Neurologic: Alert and oriented X 3, normal motor function, normal sensory function, no focal deficits noted. [] Psychologic: Affect normal, judgement normal, mood normal. [] Current Patient Data Vital Signs Vital Signs Date Time Temp Pulse Resp B/P (MAP) Pulse Ox O2 Delivery O2 Flow Rate FiO2 03/06/19 10:55 97.8 80 16 125/64 (84) 99 Room Air 97.8 Lab Values Laboratory Tests Test 03/06/19 11:00 03/06/19 11:06 Urine Collection Type Unknown Urine Color Yellow Urine Clarity Clear Urine pH 6.0 Urine Specific [place] >=1.030 Urine Protein Negative mg/dL (NEG-TRACE) Urine Glucose (UA) Negative mg/dL (NEG) Urine Ketones (Stick) Negative mg/dL (NEG) Urine Blood Negative (NEG) Urine Nitrite Negative (NEG) Urine Bilirubin Negative (NEG) Urine Urobilinogen Dipstick 1.0 mg/dL (0.2 mg/dL) Urine Leukocyte Esterase Small (NEG) Urine RBC Occ /HPF (0-2) Urine WBC 5-10 /HPF (0-4) Urine Squamous Epithelial Cells Mod /LPF Urine Bacteria Moderate /HPF (0-FEW) Urine Mucus Mod /LPF POC Urine HCG, Qualitative Hcg negative (Negative) EKG EKG [] Radiology/Procedures Radiology/Procedures [] Course & Med Decision Making Course & Med Decision Making Pertinent Labs and Imaging studies reviewed. (See chart for details) [UPREG NEG COULD BE MILD UTI BASED ON SYMPTOMS PT WOULD LIKE TREATEMNT ABDOMINAL EXAM BENIGN. Dragon Disclaimer Dragon Disclaimer This electronic medical record was generated, in whole or in part, using a voice recognition dictation system. Departure Departure Impression: Primary Impression: Urinary tract infection Disposition: 01 HOME, SELF-CARE Condition: STABLE Patient Instructions: Urinary Tract Infection, [id number] Scripts Sulfamethoxazole/Trimethoprim (BACTRIM DS TABLET) 1 Each Tablet 1 TAB PO BID, #14 TAB Prov: TU CASTREJON MD 03/06/19 TU CASTREJON MD Mar 06, 2019 13:36
== END 2019-03-06 12:02 | disposition home or self-care (01) ==
LOC: ER 10:38
DX: N39.0 Urinary tract infection, site not specified (principal); Z98.890 Other specified postprocedural states
CPT/HCPCS: 81001; 81025; 87086; 99284